=== PATIENT | female | born 1970 | race Caucasian/White ===

== ENCOUNTER 2018-09-20 20:49 | Emergency (ER) | payer BC ==
[2018-09-20] MEDS ORDERED: Lidocaine 1% 10 ML MDV INJECT ONE (21:28)
--- NOTE | 2018-09-21 08:41 | CT ---
CT cervical spine Technique: Multiple axial sections were obtained from above C1 inferiorly to the top of T2. Reconstructed sagittal and coronal images were reviewed. Findings: Detached osteophytes or calcification noted within the anterior annulus at C4-C5 and C5-C6. Slightly abnormal cervical curvature is seen either due to muscle spasm or is positional. No fracture is seen. No bony central or bony neural foraminal stenosis is seen. Mucosal thickening is noted within the right maxillary sinus with possible air-fluid level. Impression: 1. Mild degenerative change as noted above. No acute bony abnormality is identified. 2. Mucosal thickening and possible air-fluid level within the right maxillary sinus. Difficult to exclude sinusitis. Diagnostic code #3 I mostly agree with preliminary report from [facility] (sinus finding as noted above), finalized on 09/20/18, 11:50 PM Central Time, code #2
--- NOTE | 2018-09-21 08:41 | CT ---
Head CT Technique: Multiple axial sections through the brain were obtained. Intravenous contrast was not utilized. Comparison: No prior intracranial imaging. Findings: Ventricles along with basal cisterns and sulci over the convexities are within normal limits for the patient's age. No abnormal parenchymal densities are seen. No evidence of intracranial hemorrhage. No midline shift or mass effect is seen. Skin porfirio are seen with left forehead with mild adjacent soft tissue swelling within the scalp. No acute bony abnormality is seen. Mild mucosal thickening is partially visualized within the upper right maxillary sinus. Impression: 1. Scalp injury as noted above. 2. Mucosal thickening partially visualized within the upper right maxillary sinus. 3. No acute intracranial abnormality is seen. Diagnostic code #2 I agree with preliminary report from [facility], finalized on 09/20/18, 11:47 PM Central Time
--- NOTE | 2018-09-21 21:58 | EDM.PDOC ---
ED HPI GENERAL MEDICAL PROBLEM - General Chief Complaint: Head Injury Stated Complaint: FELL OUT OF PARKED TRUCK AND HIT HEAD Time Seen by Provider: 09/20/18 20:59 - History of Present Illness INITIAL COMMENTS - FREE TEXT/NARRATIVE: dictated Left Head Pain Score (Numeric/FACES): 8 - Related Data Allergies Allergy/AdvReac Type Severity Reaction Status Date / Time No Known Allergies Allergy Verified 09/20/18 21:03 Home Meds: Home Meds Loratadine [Claritin] 10 mg PO DAILY 09/20/18 [History] Past Medical History - Past Health History Medical/Surgical History: Denies Medical/Surgical History - Past Surgical History HEENT Surgical History: Reports: Oral Surgery Social & Family History - Tobacco Use Smoking Status *Q: Current Every Day Smoker Years of Tobacco use: 1 Packs/Tins Daily: 0.5 - Caffeine Use Caffeine Use: Reports: None - Alcohol Use Days Per Week of Alcohol Use: 5 Number of Drinks Per Day: 5 Total Drinks Per Week: 25 Date of Last Drink: 09/20/18 Time of Last Drink: 18:30 - Recreational Drug Use Recreational Drug Use: No ED ROS GENERAL - Review of Systems Review Of Systems: ROS reveals no pertinent complaints other than HPI. ED EXAM, HEAD INJURY - Physical Exam Exam: See Below Text/Narrative:: dictated Course - Vital Signs Last Recorded V/S: Last Vital Signs Temp 36.2 C 09/20/18 20:58 Pulse 88 09/20/18 20:58 Resp 16 09/20/18 20:58 BP 128/80 09/20/18 20:58 Pulse Ox 10 L 09/20/18 20:58 - Orders/Labs/Meds Meds: Medications Discontinued Medications Generic Name Dose Route Start Last Admin Trade Name Fam PRN Reason Stop Dose Admin Lidocaine HCl 10 ml 09/20/18 21:28 09/20/18 21:41 Xylocaine 1% INJECT 09/20/18 21:29 10 ml ONETIME ONE Administration Departure - Departure Time of Disposition: 21:57 Disposition: Home, Self-Care 01 Clinical Impression: Concussion injury of brain, Scalp laceration Laceration of ear Qualifiers: Encounter type: initial encounter Laterality: left Qualified Code(s): S01.312A - Laceration without foreign body of left ear, initial encounter - Discharge Information Instructions: Head Injury, Adult, Wound Care, Adult Referrals: Onofre Doll MD [Primary Care Provider] - Forms: ED Department Discharge
--- NOTE | 2018-09-22 02:35 | ER ---
REASON FOR EMERGENCY ROOM VISIT: Head trauma. HISTORY OF PRESENT ILLNESS: This 48-year-old woman had been drinking quite a bit this afternoon with her boyfriend. When she went to get out of the pickup, she tripped. She got her feet tangled up and fell, landing on her left side, striking her head against the ground. The patient and her boyfriend felt that she may or may not have lost consciousness very briefly. The fact that they were inebriated from drinking shots makes their history somewhat suspect. Nonetheless, she sustained a laceration to her scalp in her left ear and was complaining of pain in her head and her neck primarily. PAST MEDICAL HISTORY: Reviewed. See EMR. Noncontributory. CURRENT MEDICATIONS: None. ALLERGIES: None to medications. REVIEW OF SYSTEMS: All pertinent positives and negatives as listed in the HPI. PHYSICAL EXAMINATION: GENERAL: She has a smell of alcohol in her breath, but her speech is not slurred. She is in no acute distress. VITAL SIGNS: She is afebrile. Pulse of 88, blood pressure 120/80, respirations 16. HEENT: She has 2 cm laceration over her scalp on the left side between her forehead and her vertex. There is no palpable underlying bony abnormality. Her left ear has a somewhat complex-appearing laceration that is irregular and C- shaped over the tragus of the left ear. It measures approximately 5 to 6 cm. It does go down to the ear cartilage itself. It is oozing quite a bit and this dried. Sterile dressing was applied over this. Pupils are equally round and reactive to light. TMs were normal. Oropharynx is normal. Occlusion is normal. NECK: She has quite a bit of stiffness and soreness on both sides of her C- spine, although she came in walking on her own. Passive range of motion was significant for stiffness in the above-mentioned areas. She does have minimal tenderness to palpation over her spinous processes. There is no bony crepitus. CHEST: No tenderness or external evidence of trauma. Clear to auscultation. CARDIAC: Regular rate without murmur. ABDOMEN: Soft and nontender. No evidence of bruising. EXTREMITIES: No deformities. No edema. NEUROLOGIC: Cranial nerves 2 through 12 are intact. Deep tendon reflexes are symmetrical in the upper and lower extremities. Muscle bulk, tone, and strength are normal and symmetrical in the upper and lower extremities as well. Sensory exam is normal to crude touch. Gait was not tested. COURSE IN THE EMERGENCY ROOM: The lacerations of her scalp and ear were cleaned with bactericidal soap and water and Betadine. Lookout were used to approximate the skin x2 in the scalp laceration and this effected good approximation and hemostasis. Regarding the ear, I used 1% Xylocaine without epinephrine to achieve local anesthesia. There was no foreign bodies in the ear when I inspected it. Using a sterile field, I approximated the skin edges with interrupted 5-0 monofilament nylon sutures. Approximately 12 of these were required. After this was done, we went ahead and scanned her head and neck because of her altered consciousness and questionable history even though I had a low index of suspicion. These cleared her of any evidence of intracranial or cervical spine injury. IMPRESSION: Minor head trauma with the above-mentioned lacerations. PLAN: She was instructed regarding symptoms and signs of wound infection and care of these. She should have her porfirio removed in 5 days' time. The sutures that are in the ear should probably stay in place for at least a week. All questions were answered. She understands and agrees with this plan. MMODAL /[id number]
== END 2018-09-20 23:45 | disposition home or self-care (01) ==
LOC: JD.ED 20:49
DX: S01.01XA Laceration without foreign body of scalp, initial encounter (principal); S01.312A Laceration without foreign body of left ear, initial encounter; W01.198A Fall on same level from slipping, tripping and stumbling with subsequent striking against other object, initial encounter
CPT/HCPCS: 12001; 12014; 70450; 72125; 99283; J2001; 12011; 12013; 99282